=== PATIENT | male | born 1985 | race African-American/Black ===

== ENCOUNTER 2021-12-16 17:39 | Emergency (ER) | payer SELFPAY ==
[~2021-12-16] VITALS: Ht 177.8 cm; Wt 113.0 kg
[2021-12-16] MEDS: TETANUS, DIPHTHERIA, PERTUSSIS VAC/PF 0.5ML (>10YR OLD) IM ONE (18:45)
[2021-12-16] MEDS: KETOROLAC 60MG/2ML VIAL IM ONE (18:47)
[2021-12-16] MEDS ORDERED: ACET-2708 MT (20:47)
[2021-12-16] MEDS ORDERED: NAPR-1176 MT (20:47)
[2021-12-16 21:10] VITALS: BP 136/73
== END 2021-12-16 21:10 | disposition home or self-care (01) ==
LOC: ER 17:39
DX: S83.095A Other dislocation of left patella, initial encounter (principal); V49.59XA Passenger injured in collision with other motor vehicles in traffic accident, initial encounter; Y93.89 Activity, other specified; Y92.89 Other specified places as the place of occurrence of the external cause; Y99.8 Other external cause status
CPT/HCPCS: 27560; 73562; 90471; 90715; 96372; 99284; J1885; Z7610